=== PATIENT | male | born 1990 | race Caucasian/White ===

== ENCOUNTER 2022-06-22 00:16 | Emergency (ER) | payer OTHER ==
[~2022-06-22] VITALS: Ht 177.8 cm; Wt 63.5 kg
[2022-06-22] MEDS ORDERED: MUPIROCIN22 GM TOP ×2 (03:26)
[2022-06-22] MEDS ORDERED: CEPHALEXIN500 MG PO (03:26)
== END 2022-06-22 03:35 ==
LOC: ER 00:16
DX: S81.821A Laceration with foreign body, right lower leg, initial encounter (principal); W45.8XXA Other foreign body or object entering through skin, initial encounter; Y93.01 Activity, walking, marching and hiking; Y92.413 State road as the place of occurrence of the external cause